=== PATIENT | male | born 1985 | race African-American/Black ===

== ENCOUNTER 2017-02-09 23:37 | Emergency (ER) | payer OTHER ==
[2017-02-09 23:45] VITALS: BP 150/97
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
== END 2017-02-10 01:29 | disposition home or self-care (01) ==
LOC: ED 23:37
DX: S61.412A Laceration without foreign body of left hand, initial encounter (principal); W45.8XXA Other foreign body or object entering through skin, initial encounter; Y92.9 Unspecified place or not applicable; F17.210 Nicotine dependence, cigarettes, uncomplicated
CPT/HCPCS: 12002; 99281